=== PATIENT | female | born 1995 | race Caucasian/White ===

== ENCOUNTER 2017-04-27 11:01 | Inpatient (IN) | payer OTHER ==
[2017-04-27] VITALS (22 sets, daily range): BP systolic 102–137; BP diastolic 53–86
[~2017-04-27] VITALS: Ht 177.8 cm; Wt 122.0 kg
[~2017-04-27 11:01] MED LIST: BACTRIM,SEPT1 TABLET PO; CLEOCIN300 MG PO; FISH OIL300 MG PO; NOHOMEMEDS; PEN-VEE K,VEET500 MG; PRENATAL TABLE1 EAC3 PO; STRIBILD TABLE1 EACH PO; TRAMADOL HCL50 MG PO; VALTREX50 MG/ML PO
[2017-04-27] MEDS ORDERED: STRIBILD TABLE1 EACH PO (11:48)
[2017-04-27] MEDS ORDERED: VALTREX50 MG/ML PO (11:49)
[2017-04-27 12:25] LABS: EOSINOPHIL (%) 0.2 % (0-5); HEMATOCRIT 39.3 % (36.0-46.0); IMMATURE GRANULOCYTE (%) 0.4 % (0.0-0.7); INSTRUMENT ABS NEUTROPHIL CT 6.3 K/uL; LYMPHOCYTE COUNT 1.5 K/uL (1.0-2.8); MCH 29.9 PG (29.0-34.0); MCHC 33.6 G/DL (30.0-36.0); MCV 89.1 FL (83-99); MEAN PLAT.VOLUME 10.4 uM^3 (9.5-12.4); MONOCYTE (%) 5.8 % (3-12); MONOCYTE COUNT 0.5 K/uL (0-0.8); NEUTROPHIL (%) 75.6 % (45-76); NEUTROPHIL COUNT 6.3 K/uL (1.8-6.4); PLATELET COUNT 154 K/uL (156-360); RBC DIS.WIDTH-CV 13.2 % (11.8-14.6); RBC DIS.WIDTH-SD 43.5 % (39-53); RED BLOOD COUNT 4.41 M/uL (3.80-5.20); WHITE BLOOD COUNT 8.3 K/uL (4.1-10.2)
[2017-04-28 07:11] LABS: EOSINOPHIL (%) 0.9 % (0-5); EOSINOPHIL COUNT 0.1 K/uL (0-0.3); HEMATOCRIT 34.6 % (36.0-46.0); IMMATURE GRANULOCYTE (%) 0.3 % (0.0-0.7); INSTRUMENT ABS NEUTROPHIL CT 6.8 K/uL; MCH 30.4 PG (29.0-34.0); MCHC 33.5 G/DL (30.0-36.0); MCV 90.6 FL (83-99); MEAN PLAT.VOLUME 10.3 uM^3 (9.5-12.4); MONOCYTE COUNT 0.7 K/uL (0-0.8); NEUTROPHIL (%) 70.7 % (45-76); NEUTROPHIL COUNT 6.8 K/uL (1.8-6.4); PLATELET COUNT 132 K/uL (156-360); RBC DIS.WIDTH-CV 13.5 % (11.8-14.6); RBC DIS.WIDTH-SD 43.6 % (39-53); RED BLOOD COUNT 3.82 M/uL (3.80-5.20); WHITE BLOOD COUNT 9.6 K/uL (4.1-10.2)
[2017-04-28 07:25] VITALS: BP 123/77
[2017-04-28 15:28] VITALS: BP 119/66
[2017-04-29 07:55] VITALS: BP 110/64
[2017-04-29] MEDS ORDERED: IBUPROFEN800 MG PO (10:12)
== END 2017-04-29 12:36 | disposition home or self-care (01) | DRG 774 ==
LOC: LDRP-OP → 2WEST 11:03 → LDRP-OP 06-01 14:26
PROVIDERS: Advanced Practice Midwife
PROC: 00HU33Z Insertion of Infusion Device into Spinal Canal, Percutaneous Approach (ICD-10-PCS; principal; 2017-04-27)
PROC: 3E0R3BZ Introduction of Anesthetic Agent into Spinal Canal, Percutaneous Approach (ICD-10-PCS; principal; 2017-04-27)
PROC: 10E0XZZ Delivery of Products of Conception, External Approach (ICD-10-PCS; 2017-04-27)
PROC: 0HQ9XZZ Repair Perineum Skin, External Approach (ICD-10-PCS; 2017-04-27)
DX: O98.72 Human immunodeficiency virus [HIV] disease complicating childbirth (principal); O98.32 Other infections with a predominantly sexual mode of transmission complicating childbirth; O77.0 Labor and delivery complicated by meconium in amniotic fluid; A64 Unspecified sexually transmitted disease; O99.334 Smoking (tobacco) complicating childbirth; E66.9 Obesity, unspecified; O99.214 Obesity complicating childbirth; F17.290 Nicotine dependence, other tobacco product, uncomplicated; O69.81X0 Labor and delivery complicated by cord around neck, without compression, not applicable or unspecified; O70.0 First degree perineal laceration during delivery; K59.00 Constipation, unspecified; Z3A.39 39 weeks gestation of pregnancy; Z37.0 Single live birth; Z68.30 Body mass index [BMI] 30.0-30.9, adult
CPT/HCPCS: 85025; 88307; C1755; J1050; J3010; J7120